=== PATIENT | female | born 1995 | race Caucasian/White ===

== ENCOUNTER 2022-01-19 21:25 | Emergency (ER) | payer BC, OTHER ==
[~2022-01-19] VITALS: Ht 165.1 cm; Wt 110.2 kg
[2022-01-19] MEDS ORDERED: LACTATED RINGERS 1,000 ML IV STA (21:44)
[2022-01-19] MEDS ORDERED: HYOSCYAMINE 0.125 MG (LEVSIN) TAB SL ONE (21:45)
[2022-01-19] MEDS ORDERED: ONDANSETRON 4 MG/2 ML (SDV) Z0FRAN IVP ONE (21:45)
--- NOTE | 2022-01-19 21:50 | ED GI ---
General Stated Complaint: DIARRHEA/NAUSEA Source of Information: Patient Exam Limitations: No Limitations History of Present Illness Date Seen by Provider: Jan 19, 2022 Time Seen by Provider: 21:34 Initial Comments Here with report of diarrhea over the last 2 to 3 weeks as well as some nausea daily and intermittent vomiting. States her main concern is diarrhea and dehydration. Denies blood in her stool. Apparently her diarrhea has been yellow occasionally and she is worried about her gallbladder. Does admit to abdominal cramping after eating as well as some nausea but not any right upper quadrant pain. Does have lower abdominal cramping and states that that does wake her up at night sometimes. Her significant other had diarrheal illness as well but did not have persistence. Patient does suffer from anxiety and does take Prozac as well as hydroxyzine. She has initiated omeprazole recently. Denies fevers but does have night sweats or chills occasionally. Denies dysuria. Denies blood in her urine or stool. Timing/Duration: Changing Over Time, Other (2 weeks) Severity/Quality: Moderate, Cramping Location: RLQ, LLQ, Epigastric Radiation: No Radiation Activities at Onset: None Modifying Factors: Improves With Defecating; Worsens With Eating Associated Symptoms: Fatigue; No Heartburn; Nausea/Vomiting; No Shortness of Air, No Weakness Allergies and Home Medications Allergies Coded Allergies: No Known Drug Allergies (Unverified , 01/19/22) Patient Home Medication List Home Medication List Reviewed: Yes Review of Systems Review of Systems Constitutional: see HPI; No chills, No fever EENTM: No Nose Congestion, No Throat Pain Respiratory: Denies Cough, Denies Shortness of Air Cardiovascular: No Symptoms Reported Gastrointestinal: Abdominal Pain, Diarrhea, Nausea, Poor Appetite, Vomiting Genitourinary: No Symptoms Reported Musculoskeletal: No back pain, No neck pain Skin: no symptoms reported Psychiatric/Neurological: Anxiety; Denies Headache All Other Systems Reviewed Negative Unless Noted: Yes Past Hysqfji-Vdfgwp-Glxtqo Hx Patient Social History Tobacco Use?: No Use of E-Cig and/or Vaping dev: Yes Substance use?: No Alcohol Use?: Yes Alcohol type: Beer Alcohol Frequency: Once in a while Past Medical History Surgeries: No Respiratory: No Cardiac: No Neurological: No : No Gastrointestinal: No Musculoskeletal: No Endocrine: No Psychosocial: Yes Anxiety, Depression Family Medical History Reviewed Nursing Family Hx No Pertinent Family Hx Physical Exam Vital Signs Vital Signs - First Documented 01/19/22 21:47 Temp 36.3 Pulse 95 Resp 20 B/P (MAP) 172/101 (124) Pulse Ox 99 O2 Delivery Room Air Capillary Refill : Height/Weight/BMI Height: '" Weight: lbs. oz. kg; BMI Method: General Appearance: WD/WN, no apparent distress, obese HEENT: PERRL/EOMI, pharynx normal Neck: full range of motion, supple Respiratory: lungs clear, normal breath sounds Cardiovascular: no murmur, tachycardia Peripheral Pulses: 2+ Dorsalis Pedis (R), 2+ Left Dors-Pedis (L), 2+ Radial Pulses (R), 2+ Radial Pulses (L) Gastrointestinal: normal bowel sounds, non tender, soft, no pulsatile mass Extremities: non-tender, normal inspection, no calf tenderness Back: normal inspection, no CVA tenderness, no vertebral tenderness Neurologic/Psychiatric: alert, oriented x 3 Skin: normal color, warm/dry Progress/Results/Core Measures Results/Orders Lab Results Laboratory Tests Test 01/19/22 21:54 01/19/22 22:08 Range/Units Urine Color YELLOW Urine Clarity CLEAR Urine pH 6.0 5-9 Urine Specific [place] 1.010 L 1.016-1.022 Urine Protein NEGATIVE NEGATIVE Urine Glucose (UA) NEGATIVE NEGATIVE Urine Ketones NEGATIVE NEGATIVE Urine Nitrite NEGATIVE NEGATIVE Urine Bilirubin NEGATIVE NEGATIVE Urine Urobilinogen 0.2 < = 1.0 MG/DL Urine Leukocyte Esterase NEGATIVE NEGATIVE Urine RBC (Auto) NEGATIVE NEGATIVE Urine RBC NONE /HPF Urine WBC 0-2 /HPF Urine Squamous Epithelial Cells 2-5 /HPF Urine Crystals NONE /LPF Urine Bacteria MODERATE H /HPF Urine Casts NONE /LPF Urine Mucus NEGATIVE /LPF Urine Culture Indicated YES White Blood Count 13.0 H 4.3-11.0 10^3/uL Red Blood Count 4.66 3.80-5.11 10^6/uL Hemoglobin 12.4 11.5-16.0 g/dL Hematocrit 39 35-52 % Mean Corpuscular Volume 84 80-99 fL Mean Corpuscular Hemoglobin 27 25-34 pg Mean Corpuscular Hemoglobin Concent 32 32-36 g/dL Red Cell Distribution Width 13.2 10.0-14.5 % Platelet Count 338 130-400 10^3/uL Mean Platelet Volume 10.0 9.0-12.2 fL Immature Granulocyte % (Auto) 0 % Neutrophils (%) (Auto) 67 42-75 % Lymphocytes (%) (Auto) 26 12-44 % Monocytes (%) (Auto) 5 0-12 % Eosinophils (%) (Auto) 1 0-10 % Basophils (%) (Auto) 1 0-10 % Neutrophils # (Auto) 8.7 H 1.8-7.8 10^3/uL Lymphocytes # (Auto) 3.4 1.0-4.0 10^3/uL Monocytes # (Auto) 0.6 0.0-1.0 10^3/uL Eosinophils # (Auto) 0.2 0.0-0.3 10^3/uL Basophils # (Auto) 0.1 0.0-0.1 10^3/uL Immature Granulocyte # (Auto) 0.1 0.0-0.1 10^3/uL Sodium Level 139 135-145 MMOL/L Potassium Level 3.7 3.6-5.0 MMOL/L Chloride Level 106 98-107 MMOL/L Carbon Dioxide Level 19 L 21-32 MMOL/L Anion Gap 14 5-14 MMOL/L Blood Urea Nitrogen 10 7-18 MG/DL Creatinine 0.95 0.60-1.30 MG/DL Estimat Glomerular Filtration Rate 86 BUN/Creatinine Ratio 11 Glucose Level 94 70-105 MG/DL Calcium Level 9.1 8.5-10.1 MG/DL Corrected Calcium 9.0 8.5-10.1 MG/DL Magnesium Level 1.8 1.6-2.4 MG/DL Total Bilirubin 0.3 0.1-1.0 MG/DL Aspartate Amino Transf (AST/SGOT) 18 5-34 U/L Alanine Aminotransferase (ALT/SGPT) 20 0-55 U/L Alkaline Phosphatase 83 40-136 U/L Total Protein 7.7 6.4-8.2 GM/DL Albumin 4.1 3.2-4.5 GM/DL Lipase 33 8-78 U/L My Orders Orders - NERI CENTENO MD Cbc With Automated Diff (01/19/22 21:44) Comprehensive Metabolic Panel (01/19/22 21:44) Lipase (01/19/22 21:44) Magnesium (01/19/22 21:44) Ua Culture If Indicated (01/19/22 21:44) Ondansetron Injection (Zofran Injectio (01/19/22 21:45) Lactated Ringers (Lr 1000 Ml Iv Solution (01/19/22 21:44) Hyoscyamine Sl Tablet (Levsin Sl Tablet) (01/19/22 21:45) Ed Iv/Invasive Line Start (01/19/22 21:44) Urine Bedside (01/19/22 21:44) Urine Culture (01/19/22 21:54) Medications Given in ED Current Medications Medications Dose Ordered Sig/Tavares Route Start Time Stop Time Status Last Admin Dose Admin Hyoscyamine Sulfate 0.125 mg ONCE ONCE SL 01/19/22 21:45 01/19/22 21:46 DC 01/19/22 22:11 0.125 MG Ondansetron HCl 4 mg ONCE ONCE IVP 01/19/22 21:45 01/19/22 21:46 DC 01/19/22 22:11 4 MG Vital Signs/I&O 01/19/22 01/19/22 21:47 22:49 Temp 36.3 Pulse 95 81 Resp 20 20 B/P (MAP) 172/101 (124) 156/87 Pulse Ox 99 99 O2 Delivery Room Air Room Air Progress Progress Note : Progress Note Seen and evaluated. IV, labs, UA and UCG ordered. LR 1 L bolus. Levsin 0.125 mg p.o. Zofran 4 mg IV. Monitor patient. 2311: Overall much improved. Discharged home with return precautions. Patient verbalized understanding instructions and agreement with plan. Instructed on follow-up with Dr. Auguste as well as sauv-zbw-edfdtey therapy. Departure Impression Primary Impression: Diarrhea Qualified Codes: R19.7 - Diarrhea, unspecified Additional Impressions: Nausea and vomiting Qualified Codes: R11.2 - Nausea with vomiting, unspecified Abdominal pain Qualified Codes: R10.30 - Lower abdominal pain, unspecified Disposition: 01 HOME, SELF-CARE Condition: Improved Departure-Patient Inst. Decision time for Depature: 23:08 Referrals: DEREK AUGUSTE DO NO,LOCAL PHYSICIAN (PCP) Primary Care Physician Patient Instructions: Diarrhea in Adolescents and Adults, Nausea and Vomiting, Adult (DC), Severe Abdominal Pain, Adult (DC) Add. Discharge Instructions: Clear a light diet for the next 24 hours and then advance as tolerated. Avoid meat, cheese and milk as well as spicy foods in your diet for a few days. Follow-up with Dr. Auguste next week. Call his office for appointment. You should initiate xtiu-aia-iuywykj probiotics and take per package directions. Continue omeprazole 20 mg daily for the next 2 to 6 weeks. Drink plenty of fluids. Return for worse pain, fever, vomiting, weakness, breathing problems or other concerns as needed. Take other medications as directed. Scripts Hyoscyamine Sulfate (Hyoscyamine Sulfate) 0.125 Mg Tab.subl 0.125 MG SL Q6H PRN for DIARRHEA, #14 TAB 0 Refills Prov: NERI CENTENO MD 01/19/22 Copy Copies To 1: DEREK AUGUSTE DO NERI CENTENO MD Jan 19, 2022 21:50
[2022-01-19 22:01] LABS: BILIRUBIN,URINE NEGATIVE (NEGATIVE); CLARITY,URINE CLEAR; COLOR,URINE YELLOW; GLUCOSE, URINE (UA) NEGATIVE (NEGATIVE); KETONES,URINE NEGATIVE (NEGATIVE); LEUKOCYTE ESTERASE ,URINE NEGATIVE (NEGATIVE); NITRITE,URINE NEGATIVE (NEGATIVE); PROTEIN,URINE NEGATIVE (NEGATIVE)
[2022-01-19 22:14] LABS: BASOPHILS # (AUTO) 0.1 10^3/uL (0.0-0.1); BASOPHILS % (AUTO) 1 % (0-10); EOSINOPHILS # (AUTO) 0.2 10^3/uL (0.0-0.3); EOSINOPHILS % (AUTO) 1 % (0-10); HEMATOCRIT 39 % (35-52); HEMOGLOBIN 12.4 g/dL (11.5-16.0); LYMPHOCYTES # (AUTO) 3.4 10^3/uL (1.0-4.0); LYMPHOCYTES % (AUTO) 26 % (12-44); MEAN CORPUSCULAR HEMOGLOBIN 27 pg (25-34); MEAN CORPUSCULAR HGB CONC 32 g/dL (32-36); MEAN CORPUSCULAR VOLUME 84 fL (80-99); MONOCYTES # (AUTO) 0.6 10^3/uL (0.0-1.0); MONOCYTES % (AUTO) 5 % (0-12); NEUTROPHILS # (AUTO) 8.7 10^3/uL (1.8-7.8); NEUTROPHILS % (AUTO) 67 % (42-75); PLATELET COUNT 338 10^3/uL (130-400)
[2022-01-19 22:15] LABS: WBC,URINE 0-2 /HPF
[2022-01-19 22:16] LABS: BACTERIA,URINE MODERATE /HPF
[2022-01-19 22:29] LABS: ALBUMIN 4.1 GM/DL (3.2-4.5); POTASSIUM 3.7 MMOL/L (3.6-5.0)
[2022-01-19 22:31] LABS: CALCIUM 9.1 MG/DL (8.5-10.1)
[2022-01-19 22:32] LABS: TOTAL PROTEIN 7.7 GM/DL (6.4-8.2)
[2022-01-19 22:34] LABS: BILIRUBIN,TOTAL 0.3 MG/DL (0.1-1.0)
[2022-01-19 22:35] LABS: CREATININE SERUM 0.95 MG/DL (0.60-1.30)
[2022-01-19 22:38] LABS: MAGNESIUM 1.8 MG/DL (1.6-2.4)
[2022-01-19 22:49] VITALS: BP 156/87
[2022-01-19] MEDS ORDERED: HYOS-19 SL (23:11)
== END 2022-01-19 23:19 | disposition home or self-care (01) ==
LOC: ER 21:27
DX: R11.2 Nausea with vomiting, unspecified (principal); R19.7 Diarrhea, unspecified; F17.290 Nicotine dependence, other tobacco product, uncomplicated; Z28.310 Unvaccinated for COVID-19
CPT/HCPCS: 36415; 80053; 81000; 83690; 83735; 84703; 85025; 87088

== ENCOUNTER 2022-01-22 02:39 | Emergency (ER) | payer BC ==
[~2022-01-22] VITALS: Ht 152.4 cm; Wt 105.6 kg
[~2022-01-22 02:39] MED LIST: HYOS-19 SL
[2022-01-22] MEDS ORDERED: LACTATED RINGERS 1,000 ML IV ONE (03:00)
[2022-01-22] MEDS ORDERED: PANTOPRAZOLE 40 MG (PROTONIX) VIAL IV ONE (03:00)
[2022-01-22] MEDS ORDERED: ONDANSETRON 4 MG/2 ML (SDV) Z0FRAN IVP ONE (03:00)
--- NOTE | 2022-01-22 03:01 | ED GI ---
General Stated Complaint: ABD PAIN,VOMITING,DIARRHEA Source of Information: Patient History of Present Illness Date Seen by Provider: Jan 22, 2022 Time Seen by Provider: 02:48 Initial Comments PT ARRIVES VIA POV FROM HOME STATES SHE HAS BEEN SICK FOR ABOUT 3 WEEKS WITH NAUSEA, VOMITING, DIARRHEA AND ABDOMINAL CRAMPING WAS SEEN HERE 01/19/22 FOR THIS PROBLEM, LAB DONE AND WAS ESSENTIALLY NORMAL, NO RADIOLOGY STUDIES DONE. RX HYOSCYAMINE. REFERRED TO DR. ÁLVAREZ. PT STATES SHE HAS HAD APPROXIMATELY 5 STOOLS TODAY " VERY ITTY BITTY TINEY BITS AT A TIME" C/O NAUSEA AND VOMITED X 4 TODAY STATES SHE HAS BEEN ABLE TO KEEP WATER DOWN. FELT BETTER FOR A COUPLE OF HOURS TONIGHT, SO SHE ATE A PEANUT BUTTER AND JELLY SANDWICH AROUND 2300 TONIGHT AND VOMITED AFTERWARD STATES SHE IS URINATING WELL AND NO SYMPTOMS NO FEVER DENIES ANY ABDOMINAL PAIN OR CRAMPING. NO PRIOR ABDOMINAL SURGERIES HAS SELF DX GERD, AND TAKES OMEPRAZOLE AT TIMES, AND TRIED TO TAKE ONE THIS MORNING AND SHE VOMITED IT AND HER OTHER MORNING MEDICATIONS BACK UP. TAKES ANXIETY MEDICATION. PT STATES SHE OCCASIONALLY DRINKS, BUT NOT RECENTLY STATES SHE JUST BEGAN USING MARIJUANA IN THE LAST MONTH--SHORTLY BEFORE THESE SYMPTOMS STARTED HER MALE S.O. ALSO HAD BRIEF GI ILLNESS, BUT HIS SYMPTOMS RESOLVED. HE ALSO JUST STARTED USING MARIJUANA IN THE LAST MONTH. LMP 01/05/22. ON OCP'S PCP: NONE GOES TO [facility] NEEDED Allergies and Home Medications Allergies Coded Allergies: No Known Drug Allergies (Unverified , 01/19/22) Patient Home Medication List Home Medication List Reviewed: Yes Desogestrel-Ethinyl Estradiol (Enskyce 28 Tablet) 0.15 Mg-0.03 Mg Tablet, (Repo rted) Entered as Reported by: CHRISTOPHER CAMARGO on 01/22/22307 Last Action: New Order Fluoxetine HCl (Fluoxetine HCl) 10 Mg Capsule, (Reported) Entered as Reported by: CHRISTOPHER CAMARGO on 01/22/22307 Last Action: New Order Hydroxyzine HCl (Hydroxyzine HCl) 10 Mg Tablet, (Reported) Entered as Reported by: CHRISTOPHER CAMARGO on 01/22/22307 Last Action: New Order Hyoscyamine Sulfate (Hyoscyamine Sulfate) 0.125 Mg Tab.subl, 0.125 MG SL Q6H PRN for DIARRHEA Prescribed by: NERI CENTENO on 01/19/22 2311 Ondansetron (Ondansetron Odt) 8 Mg Tab.rapdis, 8 MG PO Q6H Prescribed by: OBEY PAK on 01/22/22438 Pantoprazole Sodium (Protonix) 40 Mg Tablet.dr, 40 MG PO DAILY Prescribed by: OBEY PAK on 01/22/22438 Promethazine HCl (Promethazine Suppository) 25 Mg Supp.rect, 25 MG RC Q6 Prescribed by: OBEY PAK on 01/22/22439 Review of Systems Review of Systems Constitutional: no symptoms reported; No dizziness, No fever Respiratory: No Symptoms Reported Cardiovascular: No Symptoms Reported Gastrointestinal: See HPI, Diarrhea, Nausea, Poor Appetite, Vomiting Genitourinary: No Symptoms Reported Musculoskeletal: no symptoms reported Skin: no symptoms reported Psychiatric/Neurological: No Symptoms Reported Endocrine: No Symptoms Reported Hematologic/Lymphatic: No Symptoms Reported Past Fakbuic-Mbzgrd-Hvevbg Hx Patient Social History Tobacco Use?: No Substance use?: Yes Substance type: Marijuana Substance frequency: Daily Alcohol Use?: Yes Alcohol Frequency: Once in a while Past Medical History Surgeries: No Respiratory: No Cardiac: No Neurological: No Genitourinary: No Gastrointestinal: No Musculoskeletal: No Endocrine: No HEENT: No Cancer: No Psychosocial: Yes Anxiety, Depression Family Medical History No Pertinent Family Hx Physical Exam Vital Signs Vital Signs - First Documented 01/22/22 02:46 Temp 37.0 Pulse 80 Resp 20 B/P (MAP) 141/100 (114) Pulse Ox 98 O2 Delivery Room Air Capillary Refill : Height/Weight/BMI Height: '" Weight: lbs. oz. kg; 40.00 BMI Method: General Appearance: WD/WN, no apparent distress, obese HEENT: other (ORAL MUCOSA MOIST) Neck: normal inspection Respiratory: normal breath sounds, no respiratory distress, no accessory muscle use Cardiovascular: regular rate, rhythm, no murmur Gastrointestinal: normal bowel sounds, non tender, soft, no organomegaly, no pulsatile mass Extremities: normal inspection, normal capillary refill Back: no CVA tenderness Neurologic/Psychiatric: fine sander II-XII nml as tested, no motor/sensory deficits, alert, normal mood/affect, oriented x 3 Skin: normal color, warm/dry; No rash Progress/Results/Core Measures Results/Orders Lab Results Laboratory Tests Test 01/22/22 02:51 01/22/22 03:07 01/22/22 03:40 Range/Units White Blood Count 9.4 4.3-11.0 10^3/uL Red Blood Count 4.57 3.80-5.11 10^6/uL Hemoglobin 12.1 11.5-16.0 g/dL Hematocrit 38 35-52 % Mean Corpuscular Volume 84 80-99 fL Mean Corpuscular Hemoglobin 27 25-34 pg Mean Corpuscular Hemoglobin Concent 32 32-36 g/dL Red Cell Distribution Width 13.2 10.0-14.5 % Platelet Count 288 130-400 10^3/uL Mean Platelet Volume 10.0 9.0-12.2 fL Immature Granulocyte % (Auto) 0 % Neutrophils (%) (Auto) 65 42-75 % Lymphocytes (%) (Auto) 27 12-44 % Monocytes (%) (Auto) 6 0-12 % Eosinophils (%) (Auto) 1 0-10 % Basophils (%) (Auto) 0 0-10 % Neutrophils # (Auto) 6.1 1.8-7.8 10^3/uL Lymphocytes # (Auto) 2.6 1.0-4.0 10^3/uL Monocytes # (Auto) 0.6 0.0-1.0 10^3/uL Eosinophils # (Auto) 0.1 0.0-0.3 10^3/uL Basophils # (Auto) 0.0 0.0-0.1 10^3/uL Immature Granulocyte # (Auto) 0.0 0.0-0.1 10^3/uL Erythrocyte Sedimentation Rate 45 H 0-20 MM/HR Sodium Level 138 135-145 MMOL/L Potassium Level 3.7 3.6-5.0 MMOL/L Chloride Level 106 98-107 MMOL/L Carbon Dioxide Level 19 L 21-32 MMOL/L Anion Gap 13 5-14 MMOL/L Blood Urea Nitrogen 7 7-18 MG/DL Creatinine 0.88 0.60-1.30 MG/DL Estimat Glomerular Filtration Rate 94 BUN/Creatinine Ratio 8 Glucose Level 108 H 70-105 MG/DL Calcium Level 9.1 8.5-10.1 MG/DL Corrected Calcium 9.2 8.5-10.1 MG/DL Magnesium Level 1.8 1.6-2.4 MG/DL Total Bilirubin 0.4 0.1-1.0 MG/DL Aspartate Amino Transf (AST/SGOT) 19 5-34 U/L Alanine Aminotransferase (ALT/SGPT) 19 0-55 U/L Alkaline Phosphatase 78 40-136 U/L C-Reactive Protein High Sensitivity 2.00 H 0.00-0.50 MG/DL Total Protein 7.5 6.4-8.2 GM/DL Albumin 3.9 3.2-4.5 GM/DL Amylase Level 46 25-125 U/L Lipase 43 8-78 U/L Serum Test, Qualitative NEGATIVE NEGATIVE Urine Color YELLOW Urine Clarity CLEAR Urine pH 6.0 5-9 Urine Specific [place] 1.020 1.016-1.022 Urine Protein NEGATIVE NEGATIVE Urine Glucose (UA) NEGATIVE NEGATIVE Urine Ketones NEGATIVE NEGATIVE Urine Nitrite NEGATIVE NEGATIVE Urine Bilirubin NEGATIVE NEGATIVE Urine Urobilinogen 0.2 < = 1.0 MG/DL Urine Leukocyte Esterase NEGATIVE NEGATIVE Urine RBC (Auto) NEGATIVE NEGATIVE Urine RBC NONE /HPF Urine WBC NONE /HPF Urine Squamous Epithelial Cells 0-2 /HPF Urine Crystals NONE /LPF Urine Bacteria TRACE /HPF Urine Casts NONE /LPF Urine Mucus NEGATIVE /LPF Urine Culture Indicated NO Urine Opiates Screen NEGATIVE NEGATIVE Urine Oxycodone Screen NEGATIVE NEGATIVE Urine Methadone Screen NEGATIVE NEGATIVE Urine Propoxyphene Screen NEGATIVE NEGATIVE Urine Barbiturates Screen NEGATIVE NEGATIVE Ur Tricyclic Antidepressants Screen NEGATIVE NEGATIVE Urine Phencyclidine Screen NEGATIVE NEGATIVE Urine Amphetamines Screen NEGATIVE NEGATIVE Urine Methamphetamines Screen NEGATIVE NEGATIVE Urine Benzodiazepines Screen NEGATIVE NEGATIVE Urine Cocaine Screen NEGATIVE NEGATIVE Urine Cannabinoids Screen POSITIVE H NEGATIVE Stool Occult Blood Immunoassay NEGATIVE NEGATIVE My Orders Orders - OBEY PAK DO Ed Iv/Invasive Line Start (01/22/22 02:55) Amylase (01/22/22 02:55) Cbc With Automated Diff (01/22/22 02:55) Comprehensive Metabolic Panel (01/22/22 02:55) Hs C Reactive Protein (01/22/22 02:55) Drug Screen Stat (Urine) (01/22/22 02:55) Hcg,Qualitative Serum (01/22/22 02:55) Lipase (01/22/22 02:55) Magnesium (01/22/22 02:55) Ua Culture If Indicated (01/22/22 02:55) Erythrocyte Sedimentation Rate (01/22/22 02:55) Ed Iv/Invasive Line Start (01/22/22 02:55) Lactated Ringers (Lr 1000 Ml Iv Solution (01/22/22 03:00) Ondansetron Injection (Zofran Injectio (01/22/22 03:00) Pantoprazole Injection (Protonix Injecti (01/22/22 03:00) Metoclopramide Injection (Reglan Injecti (01/22/22 03:30) Ct Abdomen/Pelvis Wo (01/22/22 03:31) Stool Culture (01/22/22 03:43) Fecal Wbc (01/22/22 03:43) C Difficile Ag + Toxin A/B. (01/22/22 03:43) Isolation Central Supply Req (01/22/22 03:43) Occult Blood Stool (01/22/22 03:43) Medications Given in ED Current Medications Medications Dose Ordered Sig/Tavares Route Start Time Stop Time Status Last Admin Dose Admin Lactated Ringer's 1,000 ml @ 0 mls/hr Q0M ONCE IV 01/22/22 03:00 01/22/22 03:01 DC 01/22/22 03:06 0 MLS/HR Metoclopramide HCl 10 mg ONCE ONCE IVP 01/22/22 03:30 01/22/22 03:31 DC 01/22/22 03:33 10 MG Ondansetron HCl 4 mg ONCE ONCE IVP 01/22/22 03:00 01/22/22 03:01 DC 01/22/22 03:06 4 MG Pantoprazole 40 mg ONCE ONCE IV 01/22/22 03:00 01/22/22 03:01 DC 01/22/22 03:06 40 MG Vital Signs/I&O 01/22/22 02:46 Temp 37.0 Pulse 80 Resp 20 B/P (MAP) 141/100 (114) Pulse Ox 98 O2 Delivery Room Air Progress Progress Note : Progress Note GIVEN: -IV FLUIDS -ZOFRAN -PROTONIX -REGLAN SMALL STOOL SPECIMEN COLLECTED AND SENT TO LAB, STUDIES ORDERED. NO OTHER STOOLS DURING ER STAY NO VOMITING. ONLY HAD DRY HEAVES INITIALLY. PT FEELS MUCH BETTER, AFTER THE ABOVE MEDICATIONS AND STATES NOW SHE IS REALLY HUNGRY. Diagnostic Imaging Comments CT ABDOMEN / PELVIS--PER STAT RAD VIA FAX AT 0560 NO ACUTE PROCESS Reviewed: Reviewed by Me Departure Impression Primary Impression: Nausea, vomiting and diarrhea Additional Impression: POSSIBLE CANNIBIS RELATED SYMPTOMS Disposition: 01 HOME, SELF-CARE Condition: Improved Departure-Patient Inst. Decision time for Depature: 05:12 Referrals: DEREK ÁLVAREZ,LOCAL PHYSICIAN (PCP) Primary Care Physician Patient Instructions: [id number], Marijuana Use and Addiction (DC) Add. Discharge Instructions: CLEAR LIQUIDS--WATER, BROTH, JELLO, GATORADE--SIPS AT A TIME. NO FOOD UNTIL YOUR NAUSEA IS GONE, THEN ADD A BRATS DIET TO CLEAR LIQUIDS--BA NANAS, RICE, APPLESAUCE, TOAST, SALTINES FOLLOW UP WITH DR ÁLVAREZ PREVIOUSLY ADVISED--CALL IN THE MORNING TO SCHEDULE APPOINTMENT CONTINUE LEVSIN NEEDED FOR CRAMPING\\ CONTINUE YOUR REGULAR MEDICATIONS PRESCRIBED Scripts Promethazine HCl (Promethazine Suppository) 25 Mg Supp.rect 25 MG RC Q6 for Nausea/Vomiting, #10 SUPP.RECT Prov: OBEY PAK DO 01/22/22 Pantoprazole Sodium (Protonix) 40 Mg Tablet. 40 MG PO DAILY, #15 TAB Prov: OBEY PAK DO 01/22/22 Ondansetron (Ondansetron Odt) 8 Mg Tab.rapdis 8 MG PO Q6H, #10 TAB Prov: OBEY PAK DO 01/22/22 OBEY PAK DO Jan 22, 2022 03:01
[2022-01-22] MEDS ORDERED: HYDR-3584 (03:08)
[2022-01-22] MEDS ORDERED: FLUO10CA33 (03:08)
[2022-01-22] MEDS ORDERED: DESO1TAB89 (03:08)
[2022-01-22 03:12] LABS: BASOPHILS % (AUTO) 0 % (0-10); EOSINOPHILS # (AUTO) 0.1 10^3/uL (0.0-0.3); EOSINOPHILS % (AUTO) 1 % (0-10); HEMATOCRIT 38 % (35-52); HEMOGLOBIN 12.1 g/dL (11.5-16.0); LYMPHOCYTES # (AUTO) 2.6 10^3/uL (1.0-4.0); LYMPHOCYTES % (AUTO) 27 % (12-44); MEAN CORPUSCULAR HEMOGLOBIN 27 pg (25-34); MEAN CORPUSCULAR HGB CONC 32 g/dL (32-36); MEAN CORPUSCULAR VOLUME 84 fL (80-99); MONOCYTES # (AUTO) 0.6 10^3/uL (0.0-1.0); MONOCYTES % (AUTO) 6 % (0-12); NEUTROPHILS # (AUTO) 6.1 10^3/uL (1.8-7.8); NEUTROPHILS % (AUTO) 65 % (42-75); PLATELET COUNT 288 10^3/uL (130-400); WHITE BLOOD COUNT 9.4 10^3/uL (4.3-11.0)
[2022-01-22 03:18] LABS: ALBUMIN 3.9 GM/DL (3.2-4.5); POTASSIUM 3.7 MMOL/L (3.6-5.0)
[2022-01-22 03:19] LABS: BILIRUBIN,URINE NEGATIVE (NEGATIVE); CLARITY,URINE CLEAR; COLOR,URINE YELLOW; GLUCOSE, URINE (UA) NEGATIVE (NEGATIVE); KETONES,URINE NEGATIVE (NEGATIVE); LEUKOCYTE ESTERASE ,URINE NEGATIVE (NEGATIVE); NITRITE,URINE NEGATIVE (NEGATIVE); PROTEIN,URINE NEGATIVE (NEGATIVE)
[2022-01-22 03:20] LABS: CALCIUM 9.1 MG/DL (8.5-10.1)
[2022-01-22 03:21] LABS: TOTAL PROTEIN 7.5 GM/DL (6.4-8.2)
[2022-01-22 03:23] LABS: BILIRUBIN,TOTAL 0.4 MG/DL (0.1-1.0)
[2022-01-22 03:25] LABS: CREATININE SERUM 0.88 MG/DL (0.60-1.30)
[2022-01-22 03:27] LABS: MAGNESIUM 1.8 MG/DL (1.6-2.4)
[2022-01-22 03:28] LABS: ERYTHROCYTE SEDIMENTATION RATE 45 MM/HR (0-20)
[2022-01-22 03:28] LABS: BACTERIA,URINE TRACE /HPF; SQUAMOUS EPITHELIAL CELL,UR 0-2 /HPF
[2022-01-22] MEDS ORDERED: METOCLOPRAMIDE INJ 10 MG/2 ML (REGLAN) IVP ONE (03:30)
[2022-01-22 03:34] LABS: AMPHETAMINE SCREEN, URINE NEGATIVE (NEGATIVE); BARBITURATE SCREEN URINE NEGATIVE (NEGATIVE); BENZODIAZEPINES SCREEN URINE NEGATIVE (NEGATIVE); CANNABINOID SCREEN, URINE POSITIVE (NEGATIVE); COCAINE SCREEN URINE NEGATIVE (NEGATIVE); METHADONE STAT NEGATIVE (NEGATIVE); OPIATE SCREEN URINE NEGATIVE (NEGATIVE); OXYCODONE STAT NEGATIVE (NEGATIVE); PROPOXYPHENE STAT NEGATIVE (NEGATIVE); TRICYCLIC ANTIDEPRESSANTS SCRE NEGATIVE (NEGATIVE)
[2022-01-22] MEDS ORDERED: PANT40TA2 PO (04:39)
[2022-01-22] MEDS ORDERED: ONDA8TAB13 PO (04:39)
[2022-01-22] MEDS ORDERED: PROM25SU44 RC (04:40)
[2022-01-22 05:15] VITALS: BP 127/87
--- NOTE | 2022-01-22 06:45 | Diagnostic Imaging Report ---
PROCEDURE: CT abdomen and pelvis without contrast. TECHNIQUE: Multiple contiguous axial images were obtained through the abdomen and pelvis without the use of intravenous contrast. Auto Exposure Controls were utilized during the CT exam to meet ALARA standards for radiation dose reduction. INDICATION: Diarrhea x 2 weeks. Nausea and vomiting. COMPARISON: None. FINDINGS: The lung bases are clear. The liver, gallbladder, pancreas, spleen, adrenals, kidneys, collecting systems, bladder, and appendix are negative. The reproductive structures are grossly unremarkable. No free intraperitoneal air or fluid. No lymphadenopathy. No evidence of bowel obstruction. IMPRESSION: No acute CT findings in the abdomen or pelvis. Agree with preliminary interpretation. Dictated by: Dictated on workstation # [id number]
== END 2022-01-22 05:17 | disposition home or self-care (01) ==
LOC: EDUNIT# 02:39 → ER 02:42
DX: R11.2 Nausea with vomiting, unspecified (principal); R19.7 Diarrhea, unspecified; F12.20 Cannabis dependence, uncomplicated; K21.9 Gastro-esophageal reflux disease without esophagitis; F41.9 Anxiety disorder, unspecified; Z79.899 Other long term (current) drug therapy; Z32.02 Encounter for pregnancy test, result negative
CPT/HCPCS: 36415; 74176; 80053; 80306; 81000; 82150; 82274; 83690; 83735; 84703; 85025; 85652; 86141; 87015; 87045; 87046; 87324; 87449; 87899

== ENCOUNTER → 2022-03-22 | Outpatient (CLI) | payer BC ==
[~2022-03-22] MED LIST changes: +CATHETER FLUSH 10 ML SYR IVP PRN; +DESO1TAB89; +FLUO10CA33; +HYDR-3584; +ONDA8TAB13 PO; +PANT40TA2 PO; +PROM25SU44 RC
--- NOTE | 2022-03-22 10:56 | Diagnostic Imaging Report ---
INDICATION: Loose stools status post cholecystectomy. COMPARISON: CT abdomen pelvis of 01/22/2022 TECHNIQUE: Anterior scintigraphic imaging of the abdomen was performed after the intravenous administration of 5.5 mCi Tc-99m Choletec. FINDINGS: The upper abdomen was imaged for 60 minutes with the gamma camera. There is prompt homogeneous uptake of radiopharmaceutical by the liver. Activity is seen in the common bile duct by 10 minutes. Small bowel activity seen by 15 minutes. No radiotracer activity outside the liver, common bile duct or small bowel. IMPRESSION: 1. Cholecystectomy. 2. No features of bile leak. Dictated by: Dictated on workstation # [id number]
== END ==
LOC: CARD 08:14
PROVIDERS: ATTEND Surgery
DX: R19.5 Other fecal abnormalities (principal); R11.0 Nausea; Z90.49 Acquired absence of other specified parts of digestive tract
CPT/HCPCS: 78226; A9537

== ENCOUNTER → 2023-02-27 | Outpatient (CLI) | payer BC ==
[~2023-02-27] MED LIST changes: -CATHETER FLUSH 10 ML SYR IVP PRN
--- NOTE | 2023-02-27 17:14 | Diagnostic Imaging Report ---
INDICATION: Right wrist pain AP, oblique, lateral views of the right wrist are obtained. No fracture or acute bony abnormality seen. Joint spaces are unremarkable. IMPRESSION: Negative right wrist. Dictated by: Dictated on workstation # [id number]
== END ==
LOC: RAD 13:47
PROVIDERS: ATTEND Internal Medicine
DX: M25.531 Pain in right wrist (principal)
CPT/HCPCS: 73110